=== PATIENT | male | born 1955 | race American Indian/Alaskan Native ===

== ENCOUNTER 2016-07-11 16:53 | Inpatient (IN) | payer MEDICAID ==
[~2016-07-11] VITALS: Ht 177.8 cm; Wt 145.0 kg
[~2016-07-11 16:53] MED LIST: ATEN50TA41 PO; CYCL-259 PO; FURO-93 PO; INSU100V13 SQ; INSU100V5 SQ-INSULIN; LISI-170 PO; MECL25TA2 PO; METF10002 PO; PIOG45TA PO; TELM80TA PO
[2016-07-11] MEDS ORDERED: SODIUM CHLORIDE FLUSH 10ML SYR IVF ONE (17:30)
[2016-07-11] MEDS ORDERED: CEFTRIAXONE PMX 1GM/50ML 50 ML ONE (17:57)
[2016-07-11 18:06] LABS: ASPARTATE AMINO TRANSFERASE 15 U/L (15-37); BLOOD UREA NITROGEN 66 mg/dL (7-18)
[2016-07-11] MEDS ORDERED: CEFTRIAXONE PMX 1GM/50ML 50 ML IVPB ONE (18:30)
[2016-07-11] MEDS ORDERED: AZITHROMYCIN 500 MG in SODIUM CHLORIDE 0.9% 250 ML IVPB ONE (19:30)
[2016-07-11] MEDS ORDERED: SODIUM CHLORIDE FLUSH 10ML SYR IVF PRN (20:00)
[2016-07-11 20:07] LABS: IS PT STATUS REG ER OR PRE ER? YES
[2016-07-11] MEDS ORDERED: ACETAMINOPHEN 325 MG TABLET PO PRN (23:30)
[2016-07-11] MEDS ORDERED: TEMAZEPAM 15 MG CAPSULE PO PRN (23:30)
[2016-07-11] MEDS ORDERED: FUROSEMIDE 40 MG/4 ML IV ONE (23:30)
[2016-07-12] MEDS: HEPARIN 5,000 UNITS/ML, 1ML SQ SCH ×3 (00:30→23:35)
[2016-07-12 01:00] LABS: IS PT STATUS REG ER OR PRE ER? NO
[2016-07-12] MEDS ORDERED: ALBUTEROL/IPRATROPIUM 2.5MG/0.5MG, 3 ML NPPB PRN (02:00)
[2016-07-12 03:00] VITALS: BP 144/77
[2016-07-12 05:58] LABS: BLOOD UREA NITROGEN 67 mg/dL (7-18)
[2016-07-12 06:09] LABS: IS PT STATUS REG ER OR PRE ER? NO
[2016-07-12] MEDS ORDERED: INSULIN ASPART 100 UNITS/ML, PEN SQ-INSULIN SCH (07:00)
[2016-07-12] MEDS: INSULIN REGULAR 100 UNITS/ML, 3ML VIAL SQ-INSULIN SCH ×4 (07:00→21:22)
[2016-07-12 07:48] VITALS: BP 128/75
[2016-07-12 08:56] LABS: PATH.CAST-FLAG NOT PRESENT; SPERM-FLAG NOT PRESENT; SRC-FLAG NOT PRESENT; XTAL-FLAG NOT PRESENT; YLC-FLAG NOT PRESENT
[2016-07-12] MEDS ORDERED: LISINOPRIL 20 MG TABLET PO SCH (09:00)
[2016-07-12] MEDS ORDERED: VALSARTAN 160 MG TABLET PO SCH (09:00)
[2016-07-12] MEDS ORDERED: TEMPLATE NON-FORMULARY MED. (Metformin Hcl** 1,000 MG) PO SCH (09:00)
[2016-07-12] MEDS: CEFTRIAXONE PMX 1GM/50ML 50 ML IV SCH ×2 (10:08→21:22)
[2016-07-12] MEDS: INSULIN DETEMIR 100 UNITS/ML, PEN SQ-INSULIN SCH (10:15)
[2016-07-12] MEDS: CYCLOBENZAPRINE 10 MG TABLET PO SCH (10:16)
[2016-07-12] MEDS: PIOGLITAZONE 15 MG TABLET PO SCH (10:17)
[2016-07-12] MEDS: ATENOLOL 50 MG TABLET PO SCH (10:17)
[2016-07-12] MEDS: MECLIZINE CHEWABLE 25 MG TAB PO SCH ×3 (10:17→21:21)
[2016-07-12] MEDS: SODIUM BICARBONATE 650 MG TABLET PO SCH ×2 (12:21→21:21)
[2016-07-12 12:58] VITALS: BP 141/67
[2016-07-12] MEDS: AZITHROMYCIN 500 MG in SODIUM CHLORIDE 0.9% 250 ML IV SCH (16:07)
[2016-07-12] MEDS ORDERED: FUROSEMIDE 40 MG/4 ML IV ONE (18:30)
[2016-07-12 19:09] VITALS: BP 142/74
[2016-07-13 03:30] VITALS: BP 144/73
[2016-07-13 05:04] LABS: BLOOD UREA NITROGEN 74 mg/dL (7-18)
[2016-07-13 07:27] VITALS: BP 144/69
[2016-07-13] MEDS: INSULIN REGULAR 100 UNITS/ML, 3ML VIAL SQ-INSULIN SCH ×4 (07:48→21:00)
[2016-07-13] MEDS: FUROSEMIDE 20 MG TABLET PO SCH ×2 (08:28→17:35)
[2016-07-13] MEDS: PIOGLITAZONE 15 MG TABLET PO SCH (08:29)
[2016-07-13] MEDS: CYCLOBENZAPRINE 10 MG TABLET PO SCH (08:29)
[2016-07-13] MEDS: ATENOLOL 50 MG TABLET PO SCH (08:29)
[2016-07-13] MEDS: SODIUM BICARBONATE 650 MG TABLET PO SCH ×2 (08:29→21:49)
[2016-07-13] MEDS: MECLIZINE CHEWABLE 25 MG TAB PO SCH (08:29)
[2016-07-13] MEDS: INSULIN DETEMIR 100 UNITS/ML, PEN SQ-INSULIN SCH (08:30)
[2016-07-13] MEDS: CEFTRIAXONE PMX 1GM/50ML 50 ML IV SCH ×2 (09:38→21:49)
[2016-07-13] MEDS: HEPARIN 5,000 UNITS/ML, 1ML SQ SCH ×2 (12:54→21:49)
[2016-07-13 13:25] VITALS: BP 127/74
[2016-07-13] MEDS ORDERED: MECLIZINE CHEWABLE 25 MG TAB PO PRN (14:30)
[2016-07-13] MEDS: AZITHROMYCIN 500 MG in SODIUM CHLORIDE 0.9% 250 ML IV SCH (16:04)
[2016-07-13] MEDS: AMLODIPINE 5 MG TABLET PO SCH (16:08)
[2016-07-13 21:08] VITALS: BP 152/71
[2016-07-14 01:20] VITALS: BP 136/72
[2016-07-14 05:50] LABS: BLOOD UREA NITROGEN 68 mg/dL (7-18)
[2016-07-14] MEDS: INSULIN REGULAR 100 UNITS/ML, 3ML VIAL SQ-INSULIN SCH ×4 (07:00→21:00)
[2016-07-14 07:30] VITALS: BP 149/72
[2016-07-14] MEDS ORDERED: ERGOCALCIFEROL 50,000 UNIT CAPSULE PO SCH (08:30)
[2016-07-14] MEDS: ATENOLOL 50 MG TABLET PO SCH (08:40)
[2016-07-14] MEDS: SODIUM BICARBONATE 650 MG TABLET PO SCH ×2 (08:40→21:51)
[2016-07-14] MEDS: CEFTRIAXONE PMX 1GM/50ML 50 ML IV SCH ×2 (08:40→21:51)
[2016-07-14] MEDS: AMLODIPINE 5 MG TABLET PO SCH (08:40)
[2016-07-14] MEDS: CYCLOBENZAPRINE 10 MG TABLET PO SCH (08:40)
[2016-07-14] MEDS: FUROSEMIDE 20 MG TABLET PO SCH ×2 (08:40→16:31)
[2016-07-14] MEDS: PIOGLITAZONE 15 MG TABLET PO SCH (08:40)
[2016-07-14] MEDS: INSULIN DETEMIR 100 UNITS/ML, PEN SQ-INSULIN SCH (08:42)
[2016-07-14] MEDS: CYANOCOBALOMIN 100MCG TABLET PO SCH (08:47)
[2016-07-14] MEDS: HEPARIN 5,000 UNITS/ML, 1ML SQ SCH ×2 (11:34→22:49)
[2016-07-14 12:16] VITALS: BP 143/70
[2016-07-14 12:43] VITALS: BP 148/67
[2016-07-14] MEDS: AZITHROMYCIN 500 MG in SODIUM CHLORIDE 0.9% 250 ML IV SCH (16:31)
[2016-07-14 18:54] VITALS: BP 156/76
[2016-07-15] MEDS ORDERED: DIPHENOXYLATE/ATROPINE TABLET PO PRN (00:30)
[2016-07-15 02:31] VITALS: BP 137/68
[2016-07-15 05:08] LABS: BLOOD UREA NITROGEN 70 mg/dL (7-18)
[2016-07-15] MEDS: INSULIN REGULAR 100 UNITS/ML, 3ML VIAL SQ-INSULIN SCH ×4 (07:00→22:36)
[2016-07-15 07:46] VITALS: BP 150/84
[2016-07-15] MEDS: CEFTRIAXONE PMX 1GM/50ML 50 ML IV SCH ×2 (08:05→22:35)
[2016-07-15] MEDS: AMLODIPINE 5 MG TABLET PO SCH (08:06)
[2016-07-15] MEDS: CYANOCOBALOMIN 100MCG TABLET PO SCH (08:06)
[2016-07-15] MEDS: ATENOLOL 50 MG TABLET PO SCH (08:06)
[2016-07-15] MEDS: FUROSEMIDE 20 MG TABLET PO SCH ×2 (08:06→16:02)
[2016-07-15] MEDS: CYCLOBENZAPRINE 10 MG TABLET PO SCH (08:06)
[2016-07-15] MEDS: SODIUM BICARBONATE 650 MG TABLET PO SCH ×2 (08:06→22:35)
[2016-07-15] MEDS: PIOGLITAZONE 15 MG TABLET PO SCH (08:06)
[2016-07-15] MEDS: INSULIN DETEMIR 100 UNITS/ML, PEN SQ-INSULIN SCH (08:07)
[2016-07-15] MEDS: HEPARIN 5,000 UNITS/ML, 1ML SQ SCH ×2 (11:33→22:35)
[2016-07-15 12:43] VITALS: BP 148/67
[2016-07-15] MEDS: TAMSULOSIN 0.4 MG CAP.ER.24H PO SCH (13:06)
[2016-07-15] MEDS: FINASTERIDE 5 MG TABLET PO SCH (13:06)
[2016-07-15] MEDS: AZITHROMYCIN 500 MG in SODIUM CHLORIDE 0.9% 250 ML IV SCH (16:02)
[2016-07-15 19:02] VITALS: BP 133/64
[2016-07-16 01:58] VITALS: BP 130/68
[2016-07-16 05:31] LABS: BLOOD UREA NITROGEN 64 mg/dL (7-18)
[2016-07-16] MEDS: INSULIN REGULAR 100 UNITS/ML, 3ML VIAL SQ-INSULIN SCH ×3 (07:00→16:26)
[2016-07-16] MEDS: FUROSEMIDE 20 MG TABLET PO SCH ×2 (07:35→17:06)
[2016-07-16 08:00] VITALS: BP 156/76
[2016-07-16] MEDS: FINASTERIDE 5 MG TABLET PO SCH (10:13)
[2016-07-16] MEDS: SODIUM BICARBONATE 650 MG TABLET PO SCH (10:13)
[2016-07-16] MEDS: ATENOLOL 50 MG TABLET PO SCH (10:13)
[2016-07-16] MEDS: CYANOCOBALOMIN 100MCG TABLET PO SCH (10:13)
[2016-07-16] MEDS: AMLODIPINE 5 MG TABLET PO SCH (10:14)
[2016-07-16] MEDS: CYCLOBENZAPRINE 10 MG TABLET PO SCH (10:14)
[2016-07-16] MEDS: TAMSULOSIN 0.4 MG CAP.ER.24H PO SCH (10:14)
[2016-07-16] MEDS: CEFTRIAXONE PMX 1GM/50ML 50 ML IV SCH (10:16)
[2016-07-16] MEDS: PIOGLITAZONE 15 MG TABLET PO SCH (10:24)
[2016-07-16] MEDS: INSULIN DETEMIR 100 UNITS/ML, PEN SQ-INSULIN SCH (10:27)
[2016-07-16] MEDS: HEPARIN 5,000 UNITS/ML, 1ML SQ SCH (11:16)
[2016-07-16 13:12] VITALS: BP 151/70
[2016-07-16] MEDS ORDERED: FINA5TAB4 PO (14:20)
[2016-07-16] MEDS ORDERED: HYDR-3342 PO (14:20)
[2016-07-16] MEDS ORDERED: IPRA3AMP NPPB (14:20)
[2016-07-16] MEDS ORDERED: POTA20TA89 PO (14:20)
[2016-07-16] MEDS ORDERED: ISOS30TA8 PO (14:20)
[2016-07-16] MEDS ORDERED: ERGO500017 PO (14:20)
[2016-07-16] MEDS ORDERED: TAMS-11 PO (14:20)
[2016-07-16] MEDS ORDERED: SODI650T PO (14:20)
[2016-07-16] MEDS ORDERED: INSU100I28 SQ-INSULIN (14:20)
[2016-07-16] MEDS ORDERED: CEFT1PIG2 IV (14:20)
[2016-07-16] MEDS ORDERED: AZIT500T77 PO (14:20)
[2016-07-16] MEDS ORDERED: FURO20TA3 PO (14:20)
[2016-07-16] MEDS ORDERED: CYAN100T PO (14:20)
[2016-07-16] MEDS: AZITHROMYCIN 500 MG in SODIUM CHLORIDE 0.9% 250 ML IV SCH (16:26)
== END 2016-07-16 18:25 | DRG 682 ==
LOC: ED 19:48 → EDIP 20:18 → 3NE 21:35
PROVIDERS: ADMIT Internal Medicine; ATTEND Internal Medicine
DX: N17.9 Acute kidney failure, unspecified (principal); I50.33 Acute on chronic diastolic (congestive) heart failure; E43 Unspecified severe protein-calorie malnutrition; J15.9 Unspecified bacterial pneumonia; I13.0 Hypertensive heart and chronic kidney disease with heart failure and stage 1 through stage 4 chronic kidney disease, or unspecified chronic kidney disease; Z68.42 Body mass index [BMI] 45.0-49.9, adult; D63.1 Anemia in chronic kidney disease; N18.4 Chronic kidney disease, stage 4 (severe); E11.42 Type 2 diabetes mellitus with diabetic polyneuropathy; E11.22 Type 2 diabetes mellitus with diabetic chronic kidney disease; E11.21 Type 2 diabetes mellitus with diabetic nephropathy; E66.01 Morbid (severe) obesity due to excess calories; E55.9 Vitamin D deficiency, unspecified; N40.0 Benign prostatic hyperplasia without lower urinary tract symptoms; D63.8 Anemia in other chronic diseases classified elsewhere; Z79.4 Long term (current) use of insulin; Z83.3 Family history of diabetes mellitus; Z80.49 Family history of malignant neoplasm of other genital organs; Z89.422 Acquired absence of other left toe(s); Z89.421 Acquired absence of other right toe(s)
CPT/HCPCS: 36415; 71010; 80048; 80053; 81001; 82306; 82607; 82962; 83036; 83735; 83880; 84100; 84484; 85025; 87324; 93005; 93306; 96374; 96375; J0456; J0696; J1644; J1815; J1940; J7050

== ENCOUNTER → 2016-10-15 | Outpatient (CLI) | payer MEDICAID ==
[~2016-10-15] MED LIST changes: +AZIT500T5 PO; +CEFT1PIG2 IV; +CYAN100T PO; +ERGO500017 PO; +FINA5TAB4 PO; +FURO20TA3 PO; +HYDR-3342 PO; +INSU100I28 SQ-INSULIN; +IPRA3AMP NPPB; +ISOS30TA8 PO; -PIOG45TA PO; +PIOG45TA3 PO; +POTA20TA89 PO; +REGADENOSON 0.4 MG/5 ML SYRINGE ONE; +SODI650T PO; +TAMS-11 PO
== END | disposition home or self-care (01) ==
LOC: CFH 09:10
PROVIDERS: ATTEND Internal Medicine Cardiovascular Disease
DX: I50.9 Heart failure, unspecified (principal)
CPT/HCPCS: 78452; 93017; A9502; J2785

== ENCOUNTER 2017-04-13 08:11 | Day surgery (SDC) | payer MEDICAID ==
[~2017-04-13] VITALS: Ht 177.8 cm; Wt 131.6 kg
[~2017-04-13 08:11] MED LIST changes: +HEPARIN 1,000 UNITS/ML, 10ML ONE; -REGADENOSON 0.4 MG/5 ML SYRINGE ONE
[2017-04-13] MEDS ORDERED: LACTATED RINGERS 1,000 ML IV SCH (09:20)
[2017-04-13 09:22] VITALS: BP 133/67
[2017-04-13] MEDS ORDERED: ATOR-2 PO (09:31)
[2017-04-13] MEDS ORDERED: INSU100C5 SQ-INSULIN (09:31)
[2017-04-13] MEDS ORDERED: LOSA25TA5 PO (09:31)
[2017-04-13] MEDS ORDERED: HYDR-3342 PO (09:42)
[2017-04-13] MEDS ORDERED: FURO-92 PO (09:42)
[2017-04-13] MEDS ORDERED: POTA20TA14 PO (09:42)
[2017-04-13] MEDS ORDERED: FURO80TA3 PO (09:42)
[2017-04-13] MEDS ORDERED: MECL-76 PO (09:42)
[2017-04-13] MEDS ORDERED: FENTANYL PF 100 MCG/2ML ONE (11:44)
[2017-04-13] MEDS ORDERED: ONDANSETRON 2MG/ML, 2ML ONE (11:45)
[2017-04-13] MEDS ORDERED: CEFAZOLIN 1,000 MG ONE ×2 (11:45)
[2017-04-13] MEDS ORDERED: LIDOCAINE-MPF 2% ,5ML ONE (11:45)
[2017-04-13] MEDS ORDERED: DEXAMETHASONE 4 MG/ML, 1ML ONE (11:45)
[2017-04-13] MEDS ORDERED: PROPOFOL 10 MG/ML, 20ML ONE (11:45)
[2017-04-13] MEDS ORDERED: EPHEDRINE 50 MG/ML, 1ML ONE (11:59)
[2017-04-13] MEDS ORDERED: hydrALAzine 20 MG/ML, 1ML IV PRN (12:30)
[2017-04-13] MEDS ORDERED: HYDROmorphone 1 MG/ML, 1ML IV PRN (12:30)
[2017-04-13] MEDS ORDERED: PROMETHAZINE 12.5 MG SUPP PR PRN (12:30)
[2017-04-13] MEDS ORDERED: ALBUTEROL/IPRATROPIUM 2.5MG/0.5MG, 3 ML NPPB PRN (12:30)
[2017-04-13] MEDS ORDERED: DIAZEPAM 5 MG/ML, 2ML IVPush PRN (12:30)
[2017-04-13] MEDS ORDERED: ACETAMINOPHEN 325 MG TABLET PO PRN (12:30)
[2017-04-13] MEDS ORDERED: ONDANSETRON 2MG/ML, 2ML IVPush PRN (12:30)
[2017-04-13] MEDS ORDERED: FENTANYL PF 100 MCG/2ML IV PRN (12:30)
[2017-04-13] MEDS ORDERED: OXYcodone 5 MG/5 ML ORAL.SOL UDC PO PRN (12:30)
[2017-04-13] MEDS ORDERED: PROMETHAZINE 25 MG/ML, 1ML IV PRN (12:30)
[2017-04-13] MEDS ORDERED: MIDAZOLAM 1 MG/ML, 2ML IV PRN (12:30)
[2017-04-13] MEDS ORDERED: MEPERIDINE/PF 25MG/0.5ML IVPush PRN (12:30)
[2017-04-13] MEDS ORDERED: LABETALOL 5MG/ML, 20ML IV PRN (12:30)
[2017-04-13] MEDS ORDERED: hydrALAzine 20 MG/ML, 1ML ONE (13:06)
== END 2017-04-13 15:20 ==
LOC: OUT 08:11
PROVIDERS: ATTEND Surgery Vascular Surgery
DX: E11.22 Type 2 diabetes mellitus with diabetic chronic kidney disease (principal); I12.0 Hypertensive chronic kidney disease with stage 5 chronic kidney disease or end stage renal disease; N18.6 End stage renal disease; J44.9 Chronic obstructive pulmonary disease, unspecified
CPT/HCPCS: 36415; 36821; 80047; 93005; J0360; J0690; J1100; J1644; J2405; J2704; J3010; J3490; J7120